=== PATIENT | female | born 1970 | race Hispanic/Latino ===

== ENCOUNTER 2016-10-23 12:28 | Emergency (ER) | payer OTHER ==
[~2016-10-23] VITALS: Ht 154.9 cm; Wt 104.3 kg
[2016-10-23 12:38] VITALS: BP 150/95
[2016-10-23] MEDS ORDERED: PROPRANOLOL HC120 M1 PO (12:50)
[2016-10-23] MEDS ORDERED: IMITREX50 M1 PO (12:50)
--- NOTE | 2016-10-23 12:54 | ED ANKLE/FOOT INJURY COMPLAINT ---
History of Present Illness General Chief Complaint: Foot or Ankle Injury Stated Complaint: L FOOT INJURY Source: patient Exam Limitations: no limitations Vital Signs & Intake/Output Vital Signs & Intake/Output Vital Signs Date Time Temp Pulse Resp B/P B/P Pulse O2 O2 Flow FiO2 Mean Ox Delivery Rate 10/23 1238 97.5 56 16 150/95 100 Room Air Allergies Coded Allergies: NO KNOWN ALLERGIES (08/20/12) Reconcile Medications Propranolol HCl (Propranolol HCl ER) 120 MG CAP.SA.24H 1 CAP PO QPM HEART ( Reported) Sumatriptan Succinate (Imitrex) 50 MG TABLET 1 TAB PO AD PRN HEADACHE ( Reported) Triage Note: PT TO ED FOR R FOOT PAIN "AFTER GETTING IT RUN OVER BY A PALLET AT WORK YESTERDAY" PT C/O PAIN IN BIG TOE AND MEDIAL FOOT PAIN AND BRUISING. ABLE TO WALK WITH PAIN. Triage Nurses Notes Reviewed? yes Occurred: yesterday Duration: day(s): (1) Timing: no prior history Severity: moderate Severity Numbers: 6 Pain/Injury Location: Left: 1st toe. Method of Injury: direct blow Modifying Factors: Improves With: immobilization. Worsens With: movement. : No Patient currently breastfeeds: No HPI: Patient is a 46-year-old female presenting to the emergency department with chief complaint of left great toe pain that started yesterday after she was hit in the left toe with pallets. Penis achy, throbbing, worse with ambulation and palpation. Has been icing with little relief. Denies any other injury. Chest reports there was mild amount of bleeding from the site. This happened at work. No numbness or tingling. (DEDRA CADET) Past History Travel History Traveled to [place] past 21 day No Medical History Any Pertinent Medical History? see below for history Neurological: NONE EENT: NONE Cardiovascular: hypertension Respiratory: NONE Gastrointestinal: NONE Hepatic: NONE Renal: NONE Musculoskeletal: NONE Psychiatric: NONE Endocrine: NONE Blood Disorders: NONE Cancer(s): NONE EMPLOYMENT SECURITY OFFICER/Reproductive: NONE Surgical History Surgical History: non-contributory Psychosocial History What is your primary language Pakistani Tobacco Use: Never used ETOH Use: denies use Illicit Drug Use: denies illicit drug use Family History Hx Contributory? No (DEDRA CADET) Review of Systems Review of Systems Constitutional: Reports: no symptoms. Comments Review of systems: See HPI, All other systems negative. Constitutional, no chills fever or weight loss HEENT: No visual changes no sore throat no congestion Cardiovascular: No chest pain Skin, no jaundice no rashes Respiratory: No dyspnea cough sputum or hemoptysis GI: No nausea no vomiting Muscle skeletal: no back pain, no neck pain, Neurologic: No numbness Psych: No stress anxiety or depression,. Heme/endocrine: No bruising no bleeding Immunology: No splenectomy or history of AIDS (NICOLE GRAY,DEDRA) Physical Exam Physical Exam General Appearance: well developed/nourished, no apparent distress, alert, awake , comfortable Leg/Knee/Thigh Left: normal range of motion, normal inspection Comments: Well-developed well-nourished person in no acute distress HEENT: Nose is atraumatic. Neck: Normal inspection Back: Nontender Cardiovascular: normal JVP Respiratory: No respiratory distress Extremity: No edema, no calf tenderness to palpation, normal and equal pedal pulses bilaterally. Tender to palpation of the distal aspect of the left great toe. Near full range of motion of the left great toe somewhat limited secondary to pain. Neuro: Alert oriented x3, motor sensory normal over the lower extremities bilaterally. Skin: Small amount of ecchymosis noted at the distal tip of the left great toe. No obvious bleeding. No subungual hematoma appreciated. Psych: Mood and affect is normal, memory and judgment is normal. (NICOLE GRAY,DEDRA) Progress Differential Diagnosis: fracture, dislocation, sprain, contusion Plan of Care: Orders Procedure Date/time Status XRY-TOES, LEFT 10/23 1252 Active Diagnostic Imaging: Viewed by Me: Radiology Read. Discussed w/RAD: Radiology Read. Radiology Impression: PATIENT: SERGIO ALONSO PRESENT AGE: 46 PATIENT ACCOUNT NO: [id number] : 72 LOCATION: [facility] ORDERING PHYSICIAN: DEDRA GRAY SERVICE DATE: 10/23/16 EXAM TYPE: RAD - XRY-TOES, LEFT EXAMINATION: XR TOES, LEFT CLINICAL INFORMATION: Pain, injury. COMPARISON: None TECHNIQUE: 3 views of the left toes were obtained. FINDINGS: There are no fractures or dislocations. No joint effusion is identified. No bone, joint or soft tissue abnormality is demonstrated. IMPRESSION: Unremarkable examination. DICTATED BY: STAEHLE MD,BEBA DATE/TIME DICTATED:10/23/161323 PRIVATE CLIENT ADVISOR:NURA DATE/TIME TRANSCRIBED:10/23/161323 CONFIDENTIAL, DO NOT COPY WITHOUT APPROPRIATE AUTHORIZATION. <Electronically signed in Other Vendor System> (DEDRA CADET) Departure Departure Time of Disposition: 1332 Disposition: HOME OR SELF CARE Condition: Stable Clinical Impression Primary Impression: Toe contusion Qualifiers: Encounter type: initial encounter Toe: great toe Damage to nail status: without damage Laterality: left Qualified Code: S90.112A - Contusion of left great toe without damage to nail, initial encounter Referrals: JOZEF KIDD (PCP/Family) Additional Instructions: Follow-up with your primary care physician call to make an appointment. Rest ice and elevate the foot as much as possible. Return for worsening symptoms or concerns. Departure Forms: Customer Survey General Discharge Information (DEDRA CADET) PA/AUTOMOBILE SERVICE STATION ATTENDANT Co-Sign Statement Statement: ED Attending supervision documentation- [] I saw and evaluated the patient. I have also reviewed all the pertinent lab results and diagnostic results. I agree with the findings and the plan of care as documented in the PA's/AUTOMOBILE SERVICE STATION ATTENDANT's documentation. [X] I have reviewed the ED Record and agree with the PA's/AUTOMOBILE SERVICE STATION ATTENDANT's documentation. [] Additions or exceptions (if any) to the PAs/AUTOMOBILE SERVICE STATION ATTENDANT's note and plan are summarized below: [] (KYRIE WILKINSON DO)
--- NOTE | 2016-10-23 13:29 | RADIOLOGY REPORT ---
EXAMINATION: XR TOES, LEFT CLINICAL INFORMATION: Pain, injury. COMPARISON: None TECHNIQUE: 3 views of the left toes were obtained. FINDINGS: There are no fractures or dislocations. No joint effusion is identified. No bone, joint or soft tissue abnormality is demonstrated. IMPRESSION: Unremarkable examination.
== END 2016-10-23 13:37 ==
LOC: ERH 12:28
DX: S90.112A Contusion of left great toe without damage to nail, initial encounter (principal); W22.8XXA Striking against or struck by other objects, initial encounter; Y92.9 Unspecified place or not applicable; Y93.9 Activity, unspecified
CPT/HCPCS: 73660-LT